=== PATIENT | male | born 1995 | race Caucasian/White ===

== ENCOUNTER 2017-05-22 18:15 | Emergency (ER) | payer SELFPAY ==
[2017-05-22 20:22] VITALS: BP 131/90
== END 2017-05-22 20:22 | disposition home or self-care (01) ==
LOC: ED 18:15
DX: H66.91 Otitis media, unspecified, right ear (principal); H60.501 Unspecified acute noninfective otitis externa, right ear

== ENCOUNTER 2018-08-26 23:23 | Emergency (ER) | payer SELFPAY ==
[~2018-08-26] VITALS: Ht 182.9 cm; Wt 117.0 kg
[2018-08-26 23:29] VITALS: Ht 182.9 cm; Wt 117.0 kg
[2018-08-27 00:38] VITALS: BP 152/99
== END 2018-08-27 00:38 | disposition home or self-care (01) ==
LOC: ED 23:23
DX: S39.012A Strain of muscle, fascia and tendon of lower back, initial encounter (principal); I35.0 Nonrheumatic aortic (valve) stenosis; W01.0XXA Fall on same level from slipping, tripping and stumbling without subsequent striking against object, initial encounter; Y93.89 Activity, other specified; Y92.098 Other place in other non-institutional residence as the place of occurrence of the external cause; Y99.8 Other external cause status; Z88.1 Allergy status to other antibiotic agents

== ENCOUNTER 2018-10-16 13:55 | Emergency (ER) | payer SELFPAY ==
[~2018-10-16] VITALS: Ht 182.9 cm; Wt 122.9 kg
[2018-10-16 14:00] VITALS: Ht 182.9 cm; Wt 122.9 kg
[2018-10-16 15:24] VITALS: BP 128/73
== END 2018-10-16 15:24 | disposition home or self-care (01) ==
LOC: ED 13:55
DX: J02.0 Streptococcal pharyngitis (principal); Z88.0 Allergy status to penicillin; Z88.1 Allergy status to other antibiotic agents
CPT/HCPCS: J1885

== ENCOUNTER 2019-11-11 08:37 | Emergency (ER) | payer SELFPAY ==
[~2019-11-11] VITALS: Ht 182.9 cm; Wt 129.7 kg
[2019-11-11 08:43] VITALS: Ht 182.9 cm; Wt 129.7 kg
[2019-11-11 09:33] LABS: BASOPHIL % 0.5 % (0-2); PLATELET COUNT 363 x10^3mcL (130-400); RED CELL DISTRIBUTION WIDTH 13.2 % (11.5-14.5)
[2019-11-11 10:04] LABS: CALCIUM 8.7 mg/dL (8.5-10.1); CARBON DIOXIDE 31.1 mmol/L (21-32); CHLORIDE SERUM 107 mmol/L (98-107); CREATININE SERUM 0.8 mg/dL (0.7-1.3); GFR1 > 60 mL/min; GLUCOSE SERUM 97 mg/dL (74-106); POTASSIUM SERUM 4.3 mmol/L (3.5-5.1); SODIUM SERUM 146 mmol/L (136-145)
[2019-11-11 10:09] LABS: ALBUMIN 3.9 g/dL (3.4-5.0); ALKALINE PHOSPHATASE 69 U/L (46-116); ALT/SGPT 36 U/L (16-63); AST/SGOT 17 U/L (15-37); BILIRUBIN TOTAL 0.2 mg/dL (0.20-1.00); TOTAL PROTEIN, SERUM 7.6 g/dL (6.4-8.2)
[2019-11-11 10:58] VITALS: BP 124/88
== END 2019-11-11 10:58 | disposition home or self-care (01) ==
LOC: ED 08:37
PROVIDERS: Emergency Medicine
DX: I10 Essential (primary) hypertension (principal); Z88.0 Allergy status to penicillin; Z88.1 Allergy status to other antibiotic agents
CPT/HCPCS: 36415; 83880; 85378; J3490